=== PATIENT | female | born 1970 | race Caucasian/White ===

== ENCOUNTER 2017-05-05 09:45 | Day surgery (SDC) | payer OTHER ==
[~2017-05-05] VITALS: Ht 157.5 cm; Wt 51.9 kg
[~2017-05-05 09:45] MED LIST: ASPIRIN 81M81 MG/TA2 PO; BYSTOLIC2.5 MG PO; CALTRATE-600 W600 MG PO; CYANOCOBAL1000 MCG/1 IM; LIPITOR 40MG TA40 MG PO; LIVALO1 MG PO; NITROSTAT0.4 MG/TAB SL; PLAVIX 75MG TAB75 MG PO; PRIL40 PO; RANEXA 500MG T500 MG PO; RT ADVAIR 128 DISKUS IH; RT ADVAIR 228 DISKUS IH; RT ADVAIR HFA 1112 G IH; RT ADVAIR HFA 2312 G IH; RT SPIRIVA18 MCG IH; SPIRIVA RE2.5 MCG/Ac IH; TOPROL XL 25MG25 MG PO; TOPROL XL 50MG50 MG PO; VENTOLIN0.09 MG IH; XANAX 0.5MG0.5 MG PO; ZANTAC 150MG T150 MG PO
[2017-05-05] MEDS ORDERED: PEPCID 20MG TAB20 MG PO (10:04)
[2017-05-05 10:15] VITALS: BP 106/76; PULSE 90; TEMP 97.8
[2017-05-05 11:55] VITALS: BP 126/78; PULSE 79; TEMP 97.3
[2017-05-05 12:10] VITALS: BP 123/82; PULSE 78
[2017-05-05 12:25] VITALS: BP 115/79; PULSE 76
== END 2017-05-05 12:51 | disposition home or self-care (01) ==
LOC: SDCO 09:45
DX: Z12.11 Encounter for screening for malignant neoplasm of colon (principal); K63.3 Ulcer of intestine; K64.0 First degree hemorrhoids; K57.30 Diverticulosis of large intestine without perforation or abscess without bleeding; D12.5 Benign neoplasm of sigmoid colon; D12.0 Benign neoplasm of cecum; K63.5 Polyp of colon; J44.9 Chronic obstructive pulmonary disease, unspecified; I25.10 Atherosclerotic heart disease of native coronary artery without angina pectoris; K21.9 Gastro-esophageal reflux disease without esophagitis; F41.9 Anxiety disorder, unspecified; I25.2 Old myocardial infarction; M81.0 Age-related osteoporosis without current pathological fracture; Z90.710 Acquired absence of both cervix and uterus; Z83.71 Family history of colonic polyps
CPT/HCPCS: OP; J2405; J2704; J7030

== ENCOUNTER 2017-10-16 12:47 | Emergency (ER) | payer OTHER ==
[~2017-10-16] VITALS: Ht 157.5 cm; Wt 50.9 kg
[~2017-10-16 12:47] MED LIST changes: +PEPCID 20MG TAB20 MG PO
[2017-10-16 12:50] VITALS: BP 122/74; PULSE 86; TEMP 97.6
[2017-10-16] MEDS ORDERED: FLEXERIL5 MG PO (14:14)
== END 2017-10-16 14:51 | disposition home or self-care (01) ==
LOC: COL.ER 12:47
DX: M62.838 Other muscle spasm (principal); Z79.82 Long term (current) use of aspirin; Z79.02 Long term (current) use of antithrombotics/antiplatelets; Z79.51 Long term (current) use of inhaled steroids; Z88.5 Allergy status to narcotic agent
CPT/HCPCS: J1885

== ENCOUNTER 2018-09-25 13:11 | Emergency (ER) | payer OTHER ==
[~2018-09-25] VITALS: Ht 157.5 cm; Wt 54.3 kg
[~2018-09-25 13:11] MED LIST changes: +FLEXERIL5 MG PO
[2018-09-25 13:15] VITALS: BP 129/77; TEMP 99.5
[2018-09-25] MEDS ORDERED: ANUSOL HC CREAM30 GM TP ×2 (14:02→16:50)
[2018-09-25] MEDS ORDERED: ZOFRAN ODT4 MG PO ×2 (14:03→14:53)
[2018-09-25] MEDS ORDERED: NORCO 325 MG-51 TAB PO (14:03)
[2018-09-25 14:50] VITALS: PULSE 84
== END 2018-09-25 14:55 | disposition home or self-care (01) ==
LOC: COL.ER 13:11
DX: K64.4 Residual hemorrhoidal skin tags (principal)

== ENCOUNTER → 2019-07-21 | Outpatient (CLI) | payer OTHER ==
[~2019-07-21] MED LIST changes: +ANUSOL HC CREAM30 GM TP; +NORCO 325 MG-51 TAB PO; +ZOFRAN ODT4 MG PO
== END ==
LOC: COL.PUL 06-15 10:00
DX: R06.02 Shortness of breath (principal)
CPT/HCPCS: J7674

== ENCOUNTER 2020-02-01 11:26 | Emergency (ER) | payer OTHER ==
[~2020-02-01] VITALS: Ht 157.5 cm; Wt 49.5 kg
[~2020-02-01 11:26] MED LIST changes: +DESYREL 50MG50 MG PO; +REGLAN 10MG10 MG/TAB PO
[2020-02-01 11:57] VITALS: TEMP 98.4
[2020-02-01 12:26] VITALS: BP 105/62; PULSE 75
== END 2020-02-01 12:30 | disposition home or self-care (01) ==
LOC: COL.ER 11:26
DX: B34.9 Viral infection, unspecified (principal); I25.10 Atherosclerotic heart disease of native coronary artery without angina pectoris; I25.2 Old myocardial infarction; J44.9 Chronic obstructive pulmonary disease, unspecified; F17.210 Nicotine dependence, cigarettes, uncomplicated; Z90.710 Acquired absence of both cervix and uterus; Z79.51 Long term (current) use of inhaled steroids; Z79.02 Long term (current) use of antithrombotics/antiplatelets; Z79.82 Long term (current) use of aspirin

== ENCOUNTER → 2020-04-17 | Outpatient (CLI) | payer OTHER | LOC: MHCPAIN 09:06 | DX: M47.812 Spondylosis without myelopathy or radiculopathy, cervical region (principal); M54.2 Cervicalgia; R51.9 Headache, unspecified; G89.29 Other chronic pain; F17.210 Nicotine dependence, cigarettes, uncomplicated; I48.91 Unspecified atrial fibrillation | CPT/HCPCS: G0463 ==

== ENCOUNTER 2020-12-28 06:51 | Day surgery (SDC) | payer OTHER ==
[~2020-12-28] VITALS: Ht 157.5 cm; Wt 50.2 kg
[2020-12-28] VITALS (12 sets, daily range): BP systolic 96–133; BP diastolic 65–85; PULSE 76–87; TEMP 98.3
[~2020-12-28 06:51] MED LIST changes: -SPIRIVA RE2.5 MCG/Ac IH
[2020-12-28] MEDS ORDERED: PROTONIX 40MG T40 MG PO (07:25)
[2020-12-28 07:42] LABS: HEMATOCRIT 43.4 % (37.0-47.0); HEMOGLOBIN 14.5 g/dl (12.5-16.0); MEAN CELL VOLUME 93 fl (80.0-100.0); MEAN CORPUSCULAR HEMOGLOBIN 31 pg (27.0-31.0); MEAN CORPUSCULAR HGB CONC 33 g/dl (33.0-37.0); MEAN PLATELET VOLUME 9.3 fl (7.4-10.4); PLATELET COUNT 329 K/mm3 (130-400); RED BLOOD COUNT 4.65 M/mm3 (4.10-5.30); REDCELL DISTRIBUTION WIDTH-CV 12.8 % (11.5-14.5)
[2020-12-28 07:47] LABS: INR 1.1 (0.8-3.0); PROTHROMBIN TIME 11.9 SECONDS (9.7-12.8)
[2020-12-28 07:50] LABS: PARTIAL THROMBOPLASTIN TIME 33.3 SECONDS (26.0-37.0)
[2020-12-28 08:03] LABS: CALCIUM 9.6 mg/dL (8.4-10.2); CREATININE, serum 0.82 (0.52-1.25); POTASSIUM 4.4 mmol/L (3.4-5.0)
[2020-12-28] MEDS ORDERED: FOSAMAX 70MG TA70 MG PO (08:11)
[2020-12-28] MEDS ORDERED: CALTRATE-600 W600 MG PO (08:12)
[2020-12-28] MEDS ORDERED: ZEBETA 5MG5 MG PO (08:12)
[2020-12-28] MEDS ORDERED: VITAMIN B11000 MCG/M IM (08:14)
[2020-12-28] MEDS ORDERED: RT ADVAIR HFA 2312 G IH (08:16)
[2020-12-28] MEDS ORDERED: IMDUR 30MG30 MG/TAB PO ×2 (08:17→12:50)
[2020-12-28] MEDS ORDERED: NATURAL E400 IU PO (08:19)
[2020-12-28] MEDS ORDERED: VITAMIND3 5000 PO (08:20)
--- NOTE | 2020-12-28 13:15 | NUR ---
Air was removed in 2 ml increments with no bleeding or complication. Pt had been complaining of discomfort to wrist and hand, this was relieved after process of removing air from TR band started. Tylenol was also given for pain. At time of discharge, pain to rt wrist has resolved. DC instructions reviewed with pt and . Both express understanding. Pt steady on feet in room. IV DC'd with catheter intact. She is assisted out to 's car by wheelchair with belongings.
== END 2020-12-28 13:30 | disposition home or self-care (01) ==
LOC: COL.CAR 06:51
PROVIDERS: Internal Medicine Cardiovascular Disease
DX: I25.10 Atherosclerotic heart disease of native coronary artery without angina pectoris (principal); I47.1 Supraventricular tachycardia; I48.0 Paroxysmal atrial fibrillation; J44.9 Chronic obstructive pulmonary disease, unspecified; E78.5 Hyperlipidemia, unspecified; K21.9 Gastro-esophageal reflux disease without esophagitis; I25.2 Old myocardial infarction; M19.90 Unspecified osteoarthritis, unspecified site; F41.9 Anxiety disorder, unspecified; F17.210 Nicotine dependence, cigarettes, uncomplicated; Z79.899 Other long term (current) drug therapy; Z85.41 Personal history of malignant neoplasm of cervix uteri; Z90.710 Acquired absence of both cervix and uterus; Z79.82 Long term (current) use of aspirin; Z20.822 Contact with and (suspected) exposure to COVID-19; Z80.6 Family history of leukemia; Z80.1 Family history of malignant neoplasm of trachea, bronchus and lung
CPT/HCPCS: J1644; J2250; J3010; Q9967

== ENCOUNTER 2021-04-23 06:52 | Outpatient (CLI) | payer OTHER ==
[~2021-04-23] VITALS: Ht 157.6 cm; Wt 47.1 kg
[~2021-04-23 06:52] MED LIST changes: +FOSAMAX 70MG TA70 MG PO; +IMDUR 30MG30 MG/TAB PO; +NATURAL E400 IU PO; +PROTONIX 40MG T40 MG PO; +VITAMIN B11000 MCG/M IM; +VITAMIND3 5000 PO; +ZEBETA 5MG5 MG PO
[2021-04-23] MEDS ORDERED: LIDODERM 5% PATC1 EA TP (08:01)
[2021-04-23] MEDS ORDERED: VOLTAREN GEL 1%1 TU TP (08:01)
[2021-04-23 08:02] LABS: BASO # 0.1 K/mm3 (0.0-0.2); BASO % 0.8 % (0.0-2.0); EOS # 0.3 K/mm3 (0.0-0.7); EOS % 3.5 % (0-4.0); GRAN # 5.7 K/mm3 (1.4-6.5); GRAN % 64.8 % (42.2-75.2); HEMATOCRIT 43.4 % (37.0-47.0); HEMOGLOBIN 14.5 g/dl (12.5-16.0); LYMPH # 1.9 K/mm3 (1.2-3.4); LYMPH % 21.6 % (20.0-51.0); MEAN CELL VOLUME 89 fl (80.0-100.0); MEAN CORPUSCULAR HEMOGLOBIN 30 pg (27.0-31.0); MEAN CORPUSCULAR HGB CONC 33 g/dl (33.0-37.0); MEAN PLATELET VOLUME 9.2 fl (7.4-10.4); MONO # 0.8 K/mm3 (0.1-0.6); MONO % 9.1 % (1.7-9.3); PLATELET COUNT 291 K/mm3 (130-400); RED BLOOD COUNT 4.88 M/mm3 (4.10-5.30)
[2021-04-23] MEDS ORDERED: PLAVIX 75MG TAB75 MG PO (08:02)
[2021-04-23 08:12] LABS: CREATININE, serum 0.78 mg/dL (0.57-1.11); POTASSIUM 3.9 mmol/L (3.5-4.5)
[2021-04-23 08:16] LABS: INR 1.2 (0.8-3.0); PROTHROMBIN TIME 13.1 SECONDS (9.7-12.8)
[2021-04-23 08:39] VITALS: BP 107/73; PULSE 93; TEMP 98.4
[2021-04-23 09:30] VITALS: BP 103/68; PULSE 89
[2021-04-23 09:45] VITALS: BP 98/80; PULSE 88
[2021-04-23 10:00] VITALS: BP 91/70; PULSE 87
[2021-04-23 10:15] VITALS: BP 94/62; PULSE 87
[2021-04-23 10:30] VITALS: BP 97/56; PULSE 89
--- NOTE | 2021-04-23 10:35 | NUR ---
DC instructions reviewed with pt and , both express understanding. Pt has tolerated PO fluids without issue. She has denied desire for food, stating they will go out to eat after discharge. No c/o soreness to throat or trouble swallowing. Initially following procedure pt has c/o discomfort to left shoulder. Pain improving with tylenol and repositioning and support of arm with pillow. Pt steady on feet in room. INT DC'd with catheter intact. She is assisted out to 's car by wheelchair.
== END 2021-04-23 10:35 | disposition home or self-care (01) ==
LOC: COL.RAD 06:52
PROVIDERS: Internal Medicine Cardiovascular Disease
DX: I48.91 Unspecified atrial fibrillation (principal)
CPT/HCPCS: J2704; J2765; J7120

== ENCOUNTER 2021-05-25 15:32 | Emergency (ER) | payer OTHER ==
[~2021-05-25] VITALS: Ht 157.5 cm; Wt 47.7 kg
[~2021-05-25 15:32] MED LIST changes: +LIDODERM 5% PATC1 EA TP; +VOLTAREN GEL 1%1 TU TP
[2021-05-25 16:38] VITALS: BP 136/64; PULSE 92; TEMP 97.9
== END 2021-05-25 16:42 | disposition home or self-care (01) ==
LOC: COL.ER 15:32
DX: U07.1 COVID-19 (principal); J44.9 Chronic obstructive pulmonary disease, unspecified; Z79.899 Other long term (current) drug therapy; Z73.0 Burn-out

== ENCOUNTER → 2021-07-22 | Outpatient (CLI) | payer BC, OTHER | LOC: COL.RAD 09:06 | DX: K21.9 Gastro-esophageal reflux disease without esophagitis (principal) ==

== ENCOUNTER 2023-07-02 07:01 | Day surgery (SDC) | payer BC, OTHER ==
[~2023-07-02] VITALS: Ht 157.5 cm; Wt 51.0 kg
[2023-07-02] VITALS (7 sets, daily range): BP systolic 113–124; BP diastolic 66–85; PULSE 60–84; TEMP 98
[2023-07-02] MEDS ORDERED: NICODERM C14 MG/PATC TD (07:35)
[2023-07-02] MEDS ORDERED: LANOXIN 0.120.125 MG PO (07:36)
[2023-07-02] MEDS ORDERED: RANEXA 500MG T500 MG PO (07:37)
[2023-07-02] MEDS ORDERED: TRELEGY ELLIPT1 EAC1 IH (07:37)
[2023-07-02] MEDS ORDERED: VITAMIN B11000 MCG/M IM (08:13)
--- NOTE | 2023-07-02 08:38 | NUR ---
SEE MERGE DOCUMENTATION FOR MEDICATION ADMINISTRATION AND INTRA/POST PROCEDURE SEDATION ASSESSMENTST.
--- NOTE | 2023-07-02 12:19 | NUR ---
DC instructions reviewed with pt and . Both express understanding. Dressing over loop exchange site remains clean, dry and intact. Pt free of pain or complaints. She is steady on feet in room. She drank apple juice and ate jello cup during recovery period. IV DC'd, site wrapped with coban. She is assisted out to 's car by wheelchair.
== END 2023-07-02 11:10 | disposition home or self-care (01) ==
LOC: COL.CAR 07:01
DX: I47.10 Supraventricular tachycardia, unspecified (principal); I48.0 Paroxysmal atrial fibrillation
CPT/HCPCS: C1764; J0690; J2250; J3010; J7030